=== PATIENT | male | born 1935 | race Caucasian/White ===

== ENCOUNTER 2016-11-16 00:20 | Emergency (ER) | payer MEDICARE, OTHER ==
[2016-11-16 01:14] LABS: Hematocrit 41.4 % (42.0-52.0); Hemoglobin 14.3 gm/dL (13.5-18.0); Mean Cell Volume 87.5 fl (78-100); Mean Corpuscular Hemoglobin 30.2 pg (27-31); Mean Corpuscular Hgb Conc 34.5 g/dl (32-36); Mean Platelet Volume 9.7 fl (6.0-9.5); Neutrophil # 9.9 K/mm3 (1.3-6.0); Neutrophil % 90.4 % (42-75.0); Platelet Count 264 K/mm3 (150-450); Red Blood Count 4.73 M/mm3 (4.7-6.0); Red Cell Distribution Width 13.2 % (11.5-14.0); White Blood Count 10.9 K/mm3 (4.0-10.5)
[2016-11-16 01:23] LABS: Anion Gap 13.9 mmol/L (6.8-13.8); BUN/Creatinine Ratio 15.6 (9.0-21.6); Calcium * 9.4 mg/dL (7.9-10.9); Carbon Dioxide 27.2 mmol/L (24-32.6); Estimated Creat Clear 55.4; Potassium 4.1 mmol/L (3.4-4.6)
--- NOTE | 2016-11-16 01:38 | ERNOTE ---
Abdominal HPI - Narrative Date of Service: 11/16/16 - General Chief Complaint: Constipation Time Seen by Provider: 11/16/16 00:31 Source: patient - Immun/Allergies/Home Medications Immunizatons: IMMUNIZATION HX Immunizations Up to Date Yes: "as far as I know" History of Influenza Vaccine More Information Required Hx Pneumococcal Vaccination Yes Allergies/Adverse Reactions: Allergies No Known Allergies Allergy (Verified 11/16/16 00:55) Home Medications: HOME MEDICATIONS Calcium Carbonate [Calcium] 500 mg PO DAILY 09/10/12 [Last Taken Unknown] Cholecalciferol (Vitamin D3) [Vitamin D3] 50,000 unit PO Q14D 09/10/12 [Last Taken 08/12/12 0900] Polyethylene Glycol 3350 [Miralax] 17 gm PO DAILY PRN 09/10/12 [Last Taken Unknown] Amlodipine Besylate 5 mg PO BID 11/16/16 [Last Taken Unknown] Ascorbic Acid [Vitamin C] 1,000 mg PO DAILY 11/16/16 [Last Taken Unknown] Cephalexin Monohydrate [Keflex] 500 mg PO TID #21 capsule 11/16/16 [Last Taken Unknown] Oxybutynin Chloride [Ditropan] 5 mg PO DAILY 11/16/16 [Last Taken Unknown] - History of Present Illness Narrative: 81-year-old who has been having constipation for the last 1 week, however he has been able to eat and drink without difficulty. Since this evening he has not been able to urinate which is actually the reason why he came to the emergency department tonight. Boyd denies any nausea, vomiting him a fever, chills back pain. Timing: constant Quality: mild Activities at Onset: none Modifying Factors - (Improves): Present: other - none Modifying Factors - (Worsens): Present: other - nothing Prior Abdominal Problems: Present: none Review of Systems - Review of Systems Constitutional: Present: no symptoms reported EYE: Present: no symptoms reported ENT: Present: no symptoms reported Respiratory: Present: no symptoms reported Cardiology: Present: no symptoms reported Gastrointestinal/Abdominal: Present: See HPI Genitourinary: Present: See HPI Musculoskeletal: Present: no symptoms reported Skin: Present: no symptoms reported Neurological: Present: no symptoms reported Endocrine: Present: no symptoms reported Hematologic/Lymphatic: Present: no symptoms reported Psych: Present: no symptoms reported - Patient's Past Medical History Patient History - Medical: Arthritis, Other Patient History - Cardiac/Respiratory: Hyperlipidemia Patient History - Cancer: No Hx of Cancer Patient History - Surgical Procedures: Colonoscopy, Pneumothorax, T & A, Other Patient History - Other: Jewish/Cultural Beliefs affecting care - Family History Father Family History - Medical: Family History - Cardiac/Respiratory: Hypertension Mother Family History - Medical: Brother Family History - Medical: - Social History Living Situations: other Abuse History: No History of abuse Psych History: No pertinent hx Smoking Status: Former smoker Have you smoked in the past 12 months: No Do you dip or chew tobacco: No Alcohol Use: none Drug Use: none - Immunizations Immunizations Up to Date: Yes - "as far as I know" Hx Pneumococcal Vaccination: Yes History of Influenza Vaccine: More Information Required to Determine Physical Exam - Physical Exam General Appearance: Present: no apparent distress Head Exam: Present: normal inspection Eye Exam: Normal inspection: bilateral Ears, Nose, Throat: Present: normal ENT inspection Neck: Present: normal inspection Respiratory: Present: no respiratory distress Cardiovascular/Chest: Present: regular rate, rhythm Gastrointestinal/Abdominal: Present: nontender, nondistended, no organomegaly Back Exam: Present: normal inspection Extremity Exam: Present: normal inspection Neurological Exam: Present: alert, oriented Skin Exam: Present: normal color ED Progress - Results and Orders Patient's Lab Results:: I have reviewed the patient's lab results. - Vital Signs Patient's Vital Signs:: I have reviewed the patient's vital signs. Vital Signs: Vital Signs 11/16/16 00:31 Temperature 37.2 C Pulse Rate 83 Respiratory 18 Rate Blood Pressure 154/81 O2 Sat by Pulse 95 Oximetry - X-Ray X-Ray #1 X-Ray: abdomen Interpretation: Interp. by me X-ray Comments: Large amount of stool present. Normal gas pattern. - Progress/Reassessment Chief Complaint: Constipation Progress:: Improved Progress Note-Subjective: 11/16/16 01:38 Greater than 300 cc were seen on bladder scanning. A parker catheter was placed. 11/16/16 02:09 Given one gram of Rocephin for a UTI. Departure - Departure Clinical Impression: UTI (urinary tract infection), Urinary outflow obstruction, Constipation Disposition: Home self-care Condition: Fair Instructions: Acute Urinary Retention, Male, Constipation, Adult, [id number] , Urinary Tract Infection, Adult, [id number] Print Language: Stateless Additional Instructions: Follow up with your doctor and the urologist. Referrals: Bhavin Tom MD [Primary Care Provider] - Hollis Felix MD [Associate] - Prescriptions: Cephalexin Monohydrate [Keflex] 500 mg PO TID #21 capsule
[2016-11-16 01:41] LABS: Urine Bilirubin Negative (NEGATIVE); Urine Blood 25 /ul (NEGATIVE); Urine Ketone Negative (NEGATIVE); Urine Protein Negative (NEGATIVE); Urine Specific Gravity 1.015 SP.GR. (1.005-1.030); Urine Urobilinogen Normal (NORMAL)
[2016-11-16 01:42] LABS: Urine Appearance Cloudy; Urine Bacteria 4+; Urine Color Pale Yellow; Urine Nitrite Positive (NEGATIVE); Urine WBC >50 /hpf (0-5)
[2016-11-16] MEDS ORDERED: MAGNESIUM HYDROXIDE 30 ML UDC PO ONE (02:13)
[2016-11-16] MEDS ORDERED: MAGNESIUM CITRATE 300 ML BTL PO ONE (02:13)
[2016-11-16] MEDS ORDERED: MAGNESIUM HYDROXIDE 30 ML UDC ONE (02:16)
[2016-11-16] MEDS ORDERED: MAGNESIUM CITRATE 300 ML BTL ONE (02:20)
[2016-11-16 02:41] VITALS: BP 149/76
== END 2016-11-16 02:37 | disposition home or self-care (01) ==
LOC: ER 00:20
PROC: 0T9B70Z Drainage of Bladder with Drainage Device, Via Natural or Artificial Opening (ICD-10-PCS; principal; 2016-11-16)
PROC: BT40ZZZ Ultrasonography of Bladder (ICD-10-PCS; 2016-11-16)
DX: N39.0 Urinary tract infection, site not specified (principal); N13.9 Obstructive and reflux uropathy, unspecified; K59.00 Constipation, unspecified; Z87.891 Personal history of nicotine dependence

== ENCOUNTER 2018-05-15 11:42 | Observation (INO) ==
[2018-05-15] MEDS ORDERED: NORMAL SALINE 1,000 ML IV ONE ×2 (11:53→13:07)
[2018-05-15] MEDS ORDERED: ACETAMINOPHEN 500 MG TABLET PO ONE (11:56)
--- NOTE | 2018-05-15 11:59 | ERNOTE ---
Medical Problem HPI - Narrative Date of Service: 05/15/18 - General Chief Complaint: General Assessment Time Seen by Provider: 05/15/18 11:42 Source: patient Exam Limitations: no limitations - Immun/Allergies/Home Medications Immunizations: IMMUNIZATION HX Immunizations Up to Date Yes History of Influenza Vaccine No Hx Pneumococcal Vaccination Yes Allergies/Adverse Reactions: Allergies No Known Allergies Allergy (Verified 05/14/18 13:23) Home Medications: HOME MEDICATIONS Calcium Carbonate [Calcium] 500 mg PO DAILY 09/10/12 [Last Taken Unknown] Cholecalciferol (Vitamin D3) [Vitamin D3] 50,000 unit PO Q14D 09/10/12 [Last Taken 08/12/12 0900] Ascorbic Acid [Vitamin C] 1,000 mg PO DAILY 11/16/16 [Last Taken Unknown] Oxybutynin Chloride [Ditropan] 5 mg PO DAILY 11/16/16 [Last Taken Unknown] ascorbic acid (vitamin C) 500 mg tablet 500 mg PO DAILY 11/04/17 [Last Taken Unknown] polyethylene glycol 3350 17 gram/dose oral powder 17 g PO DAILY PRN #850 g 11/17/17 [Last Taken Unknown] amlodipine 5 mg tablet 5 mg PO BID #60 tab 05/14/18 [Last Taken Unknown] levofloxacin 500 mg tablet 500 mg PO DAILY 10 Days #10 tab 05/14/18 [Last Taken Unknown] - History of Present History Narrative: This patient is an 82-year-old male who is here because he cannot control his arms and legs. He is concerned about a brain bleed. He has a history of subarachnoid hemorrhage. He said that his symptoms began about a week ago. He has felt short of breath. He denies cough. He has a runny nose but denies other cold symptoms. He denies chest pain. He denies palpitations. He fell about a week ago and has no significant injury. He denies abdominal pain, nausea, vomiting, and diarrhea. He says that he has trouble urinating. He was seen in the office yesterday. The CC and HPI are: SOB (shortness of breath): Details: having some SOB, not all the time. comes and goes. does not get flu shot. family members wondered to lockstitch front maker people about some home care- daughter and grandaughter not sure of homebound status. He had a chest x-ray that showed: No focal acute cardiopulmonary finding. He had labs that included: WBC 7.3, Hgb 12.0, HCT 37.1, PLT 434, neutrophil 78.2%, lymphocyte 12.8% Sodium 138, potassium 3.0, CO2 30.4, BUN 22, creatinine 0.9 He was started on Levaquin. Review of Systems - Review of Systems Constitutional: Present: weakness, malaise. Absent: fever EYE: Absent: eye discharge, vision changes ENT: Present: nasal drainage. Absent: ear pain, nose congestion, sore throat Respiratory: Present: shortness of breath. Absent: cough Cardiology: Absent: chest pain, palpitations, syncope Gastrointestinal/Abdominal: Absent: nausea, vomiting, diarrhea, abdominal pain Genitourinary: Present: other - He has trouble passing his urine and is noted to be on oxybutynin. Skin: Absent: rash Neurological: Present: weakness, tremors. Absent: headache, numbness Endocrine: Present: no symptoms reported Hematologic/Lymphatic: Present: no symptoms reported Psych: Present: no symptoms reported Medical History (Last Reviewed 05/15/18 @ 12:08 by Al Haley MD) Arthritis Onset Date: ~2000 Diastolic dysfunction Onset Date: ~09/10/12 Emphysema lung Onset Date: ~1999 Erectile dysfunction Onset Date: ~03/28/15 Finger fracture Onset Date: ~04/11/17 left long finger Frequent falls Onset Date: ~03/28/15 H/O wisdom tooth extraction Onset Date: ~1962 Hypertension Onset Date: ~1997 Hypertrophy of prostate without urinary obstruction Onset Date: ~10/30/10 Moderate concentric left ventricular hypertrophy Onset Date: ~09/10/12 Primary cerebellar degeneration Onset Date: ~10/30/10 Urinary tract bacterial infections Onset Date: Unknown Vitamin D deficiency Onset Date: Unknown Surgical History: Surgical History (Last Reviewed 05/15/18 @ 12:08 by Al Haley MD) H/O colonoscopy Onset Date: ~2006 H/O pneumonectomy Onset Date: ~1967 Hx of tonsillectomy Onset Date: ~1948 S/P TURP (status post transurethral resection of prostate) Onset Date: ~11/2014 Family History: Family History (Last Reviewed 05/15/18 @ 12:08 by Al Haley MD) Father , age 74 Cancer lung ca Hypertension Kidney stone Mother , age 59 pancreatic ca Cancer pancreatic ca Brother , age 55 Cancer unsure of type in his arm Hypertension Son Alive and well x 2 Daughter Alive and well x 2 Uncle , age 65 from [place] Myocardial infarction Social History: Preferred Language Montenegrin Do you have any quaker or Yes: jehovah witness cultural preference? Smoking Status Former smoker Have you smoked in the past 12 No months Do you dip or chew tobacco No Abuse History No History of abuse Psych History No pertinent hx Alcohol Use none Drug Use none (Last Reviewed 05/14/18 @ 13:24 by Claeb Acuña LPN) No Social History Section defined Physical Exam - Physical Exam General Appearance: Present: alert, no apparent distress, cachetic Head Exam: Present: normal inspection, no evidence of injury Eye Exam: Normal inspection: bilateral Ears, Nose, Throat: Present: normal ENT inspection, dry mucous membranes Neck: Present: normal inspection. Absent: lymphadenopathy (R), lymphadenopathy (L) Respiratory: Present: no respiratory distress, no accessory muscle use, chest nontender, other - The lungs were essentially clear. There are a few crackles at the right base. Cardiovascular/Chest: Present: no murmur, tachycardia Gastrointestinal/Abdominal: Present: normal bowel sounds, nondistended, soft, no organomegaly, tenderness - Mild and diffuse. Extremity Exam: Present: normal inspection, non-tender, normal range of motion, no edema, other - He has an abrasion on the back of the right shoulder. Neurological Exam: Present: alert, normal mood/affect, other - He appears to have ataxia. No lateralizing deficit. Skin Exam: Present: normal color, warm/dry Progress - Date and Time Seen: Date and Time: I spoke with the patient and family. They are interested in admission. I spoke with Dr. Barrera and he agrees to keep the patient for observation. His temperature came down but was still elevated at the time of admission. - Results and Orders Patient's Lab Results:: I have reviewed the patient's lab results. Results and Orders: Laboratory Tests 05/15/18 05/15/18 05/15/18 12:00 12:00 12:00 WBC 13.7 H D Hgb 12.5 L Hct 37.7 L Plt Count 388 Immature Gran % (Auto) 0.40 Neutrophils % 90.5 H Lymphocytes % 4.4 L Monocytes % 4.2 Eosinophils % 0.1 Basophils % 0.4 Plasma Sodium 143 H Potassium 4.1 D Chloride 102 Carbon Dioxide 31.4 Anion Gap 13.7 BUN 22 Creatinine 0.92 Est GFR (Non-Af Amer) 84 Random Glucose 100 Lactic Acid, Venous 1.2 Calcium 9.1 Total Bilirubin 0.5 AST 37 ALT 23 Alkaline Phosphatase 220 H Total Protein 7.0 Albumin 3.3 L Urine Color Urine Appearance Urine pH Ur Specific [place] Urine Protein Urine Glucose (UA) Urine Ketones Urine Blood Urine Nitrate Urine Bilirubin Urine Urobilinogen Ur Leukocyte Esterase Urine RBC Urine WBC Ur Epithelial Cells Urine Bacteria Urine Culture Comments 05/15/18 12:21 WBC Hgb Hct Plt Count Immature Gran % (Auto) Neutrophils % Lymphocytes % Monocytes % Eosinophils % Basophils % Plasma Sodium Potassium Chloride Carbon Dioxide Anion Gap BUN Creatinine Est GFR (Non-Af Amer) Random Glucose Lactic Acid, Venous Calcium Total Bilirubin AST ALT Alkaline Phosphatase Total Protein Albumin Urine Color Yellow Urine Appearance Clear Urine pH 6.5 Ur Specific [place] 1.025 Urine Protein Negative Urine Glucose (UA) Negative Urine Ketones Negative Urine Blood Negative Urine Nitrate Negative Urine Bilirubin Negative Urine Urobilinogen Normal Ur Leukocyte Esterase Negative Urine RBC None seen Urine WBC Trace Ur Epithelial Cells 0-5 Urine Bacteria None seen Urine Culture Comments No culture indicated - Vital Signs Patient's Vital Signs:: I have reviewed the patient's vital signs. Vital Signs: Vital Signs 05/15/18 11:45 Temperature 39.5 C H Pulse Rate 115 H Respiratory Rate 20 O2 Sat by Pulse Oximetry 89 L - X-Ray X-Ray #1 X-Ray: chest Interpretation: Reviewed by me X-ray Comments: HISTORY: fever Additional history from technologist: Diagnosed with pneumonia 2 days ago. Weaker. TECHNIQUE: Single portable AP view of the chest was obtained 1258 hours. A copy of the image with line enhancing algorithm also submitted. COMPARISONS: Patient has multiple prior chest imaging available, with the most recent chest x-ray from 05/14/2018, oldest exam from chest CT from 07/29/2006. FINDINGS: Chest Single View *: Hypoinflated lungs. No definite consolidation. Vertically oriented scarring of the left lung base near the costophrenic angle, stable. Pulmonary vasculature is normal. No pneumothorax or pleural fluid collections apparent. Cardiac size within normal limits. Vascular calcification overlying the tortuous aorta, stable. Trachea is in normal position given patient positioning. Osseous structures are grossly intact. IMPRESSION: 1. No acute cardiopulmonary findings. 2. Additional comments are as above. Electronically signed by Kallie Spence M.D.. - Progress/Reassessment Chief Complaint: General Assessment Departure Clinical Impression: Fever, Failure of outpatient treatment - Departure Disposition: Still a patient Condition: Stable
[2018-05-15 12:12] LABS: Hematocrit 37.7 % (42.0-52.0); Hemoglobin 12.5 gm/dL (13.5-18.0); Mean Cell Volume 90.6 fl (78-100); Mean Corpuscular Hgb Conc 33.2 g/dl (32-36); Mean Platelet Volume 9.2 fl (8-11.3); Neutrophil # 12.4 K/mm3 (1.3-6.0); Neutrophil % 90.5 % (42-75.0); Platelet Count 388 K/mm3 (150-450); Red Blood Count 4.16 M/mm3 (4.7-6.0); Red Cell Distribution Width 13.3 % (11.5-14.0); White Blood Count 13.7 K/mm3 (4.0-10.5)
[2018-05-15 12:17] LABS: BUN/Creatinine Ratio 23.9 (9.0-21.6); Potassium 4.1 mmol/L (3.4-4.6)
[2018-05-15 12:18] LABS: Albumin * 3.3 gm/dl (3.4-5.0); Anion Gap 13.7 mmol/L (6.8-13.8); Bilirubin, Total 0.5 mg/dL (0.0-1.1); Ca. Corrected For Albumin 9.3 mg/dL (8.4-10.2); Calcium * 9.1 mg/dL (7.9-10.9); Carbon Dioxide 31.4 mmol/L (24-32.6)
[2018-05-15 12:49] LABS: Urine Bilirubin Negative (NEGATIVE); Urine Blood Negative /ul (NEGATIVE); Urine Ketone Negative (NEGATIVE); Urine Nitrite Negative (NEGATIVE); Urine Protein Negative (NEGATIVE); Urine Specific Gravity 1.025 SP.GR. (1.005-1.030); Urine Urobilinogen Normal (NORMAL); Urine pH 6.5 pH (5.0-7.0)
[2018-05-15 13:03] LABS: Urine Appearance Clear (CLEAR); Urine Bacteria None Seen; Urine Color Yellow; Urine RBC None Seen /hpf (0-5); Urine WBC TRACE /hpf (0-5)
[2018-05-15] MEDS: LEVOFLOXACIN IN DEXTROSE 5 % 750 MG/150 ML BAG IV SCH (14:23)
[2018-05-15] MEDS ORDERED: IBUPROFEN 400 MG TABLET PO ONE (15:26)
[2018-05-15] MEDS ORDERED: amLODIPine BESYLATE 5 MG TABLET PO ONE (22:46)
[2018-05-15] MEDS ORDERED: NORMAL SALINE 1,000 ML IV PRN (22:46)
[2018-05-15] MEDS ORDERED: OXYBUTYNIN CHLORIDE 5 MG TABLET PO ONE (22:47)
[2018-05-16 07:11] LABS: Hematocrit 31.7 % (42.0-52.0); Hemoglobin 10.4 gm/dL (13.5-18.0); Mean Cell Volume 90.8 fl (78-100); Mean Corpuscular Hemoglobin 29.8 pg (27-31); Mean Corpuscular Hgb Conc 32.8 g/dl (32-36); Mean Platelet Volume 9.4 fl (8-11.3); Neutrophil # 10.3 K/mm3 (1.3-6.0); Neutrophil % 86.5 % (42-75.0); Platelet Count 299 K/mm3 (150-450); Red Blood Count 3.49 M/mm3 (4.7-6.0); Red Cell Distribution Width 13.4 % (11.5-14.0); White Blood Count 11.9 K/mm3 (4.0-10.5)
[2018-05-16 07:42] LABS: Albumin * 2.6 gm/dl (3.4-5.0); Anion Gap 12.2 mmol/L (6.8-13.8); BUN/Creatinine Ratio 17.7 (9.0-21.6); Bilirubin, Total 0.6 mg/dL (0.0-1.1); Ca. Corrected For Albumin 9.4 mg/dL (8.4-10.2); Calcium * 8.6 mg/dL (7.9-10.9); Carbon Dioxide 28.4 mmol/L (24-32.6); Potassium 3.6 mmol/L (3.4-4.6)
--- NOTE | 2018-05-16 09:08 | HP ---
Chief Complaint - Chief Complaint Date of Service: 05/15/18 Time of Service: 17:00 Chief Complaint: Weakness, fever History of Present Illness: Oliver is an 82 yo male with Primary Cerebellar Degeneration who over the last two weeks has had a significant decline in his baseline. She had reported shortness of breath and had presented to the [facility] ER for evaluation a few days ago and diagnosed with pneumonia. He was started on Levaquin but continued to be short of breath. Family brought him back to the ER today for further evaluation. Chest xray today shows no evidence of pneumonia. He was 89% oxygen on room air and placed on oxygen at 2lpm in the ER. He was found to have fever and WBC of 13k. He denies urinary symptoms and denies cough. He reports over the last two weeks his right arm has been having more weakness than usual. Medical History (Last Reviewed 05/15/18 @ 19:39 by Addis Harding RN) Arthritis Onset Date: ~2000 Diastolic dysfunction Onset Date: ~09/10/12 Emphysema lung Onset Date: ~1999 Erectile dysfunction Onset Date: ~03/28/15 Finger fracture Onset Date: ~04/11/17 left long finger Frequent falls Onset Date: ~03/28/15 H/O wisdom tooth extraction Onset Date: ~1962 Hypertension Onset Date: ~1997 Hypertrophy of prostate without urinary obstruction Onset Date: ~10/30/10 Moderate concentric left ventricular hypertrophy Onset Date: ~09/10/12 Primary cerebellar degeneration Onset Date: ~10/30/10 Urinary tract bacterial infections Onset Date: Unknown Vitamin D deficiency Onset Date: Unknown Surgical History: Surgical History (Last Reviewed 05/15/18 @ 19:39 by Addis Harding RN) H/O colonoscopy Onset Date: ~2006 H/O pneumonectomy Onset Date: ~1967 Hx of tonsillectomy Onset Date: ~1948 S/P TURP (status post transurethral resection of prostate) Onset Date: ~11/2014 Family History: Family History (Last Reviewed 05/15/18 @ 19:39 by Addis Harding RN) Father , age 74 Cancer lung ca Hypertension Kidney stone Mother , age 59 pancreatic ca Cancer pancreatic ca Brother , age 55 Cancer unsure of type in his arm Hypertension Son Alive and well x 2 Daughter Alive and well x 2 Uncle , age 65 from [place] Myocardial infarction Social History: Patient Lives/Resources daughter Utilized Occupation retired Preferred Language Salvadorean Do you have any judaism or Yes: Jehovah witness cultural preference? Smoking Status Former smoker Have you smoked in the past 12 No months Do you dip or chew tobacco No Abuse History No History of abuse Psych History No pertinent hx Alcohol Use none Drug Use none (Last Reviewed 05/14/18 @ 13:24 by Caleb Acuña LPN) No Social History Section defined Review Of Systems (GEN) - Review of Systems Generalized/Overall Review: Present: Weakness, Chills, Fever EENTM: Present: No Symptoms Reported Respiratory: Present: Shortness of Breath. Absent: Cough Cardiac: Absent: Chest Pain, Edema, Palpitations Abdominal: Absent: Nausea, Vomiting, Hematemesis, Abdominal Pain, Constipation, Diarrhea Genitourinary: Present: No Symptoms Reported Musculoskeletal: Present: No Symptoms Reported Neurological: Present: No Symptoms Reported Skin: Present: Other - Scratches, sores Immunizations: IMMUNIZATION HX Immunizations Up to Date Yes History of Influenza Vaccine No Hx Pneumococcal Vaccination Yes Allergies/Adverse Reactions: Allergies Allergy/AdvReac Type Severity Reaction Status Date / Time No Known Allergies Allergy Verified 05/14/18 13:23 Home Medications: HOME MEDICATIONS Calcium Carbonate [Calcium] 500 mg PO DAILY 09/10/12 [Last Taken Unknown] Cholecalciferol (Vitamin D3) [Vitamin D3] 50,000 unit PO Q14D 09/10/12 [Last Taken 08/12/12 0900] Ascorbic Acid [Vitamin C] 1,000 mg PO DAILY 11/16/16 [Last Taken Unknown] Oxybutynin Chloride [Ditropan] 5 mg PO BID 11/16/16 [Last Taken Unknown] ascorbic acid (vitamin C) 500 mg tablet 500 mg PO DAILY 11/04/17 [Last Taken Unknown] polyethylene glycol 3350 17 gram/dose oral powder 17 g PO DAILY PRN #850 g 11/17/17 [Last Taken Unknown] amlodipine 5 mg tablet 5 mg PO BID #60 tab 05/14/18 [Last Taken Unknown] levofloxacin 500 mg tablet 500 mg PO DAILY 10 Days #10 tab 05/14/18 [Last Taken Unknown] Exam - Exam Vital Signs: Vital Signs - Last Taken Temp 37.0 C 05/16/18 07:35 Pulse 75 05/16/18 08:56 Resp 18 05/16/18 08:56 BP 136/67 05/16/18 07:35 Pulse Ox 94 05/16/18 08:56 Constitutional: Present: Alert, Oriented x3, Cooperative, No distress ENT Exam: Present: hearing grossly normal Eye Exam: bilateral eye: normal inspection Respiratory: Present: lungs clear, normal breath sounds, no respiratory distress Cardiovascular/Chest: Present: regular rate, rhythm, no murmur Abdomen: Present: Normal bowel sounds, soft, nontender, nondistended Skin Exam: Present: other - Multiple crusted scratches/sores on bilateral lower legs and right inner thigh. No erythema or drainage Lymphatic: Present: no adenopathy Neurologic: Present: alert, normal mood/affect, other - garbled speech, clunky motor movement Eye contact: Present: cooperative, good eye contact Thoughts: Present: normal thought pattern, no apparent hallucination Diagnostic Studies: Abnormal Lab Results 05/15/18 05/15/18 05/16/18 Range/Units 12:00 12:00 06:45 WBC 13.7 H D 11.9 H (4.0-10.5) K/mm3 RBC 4.16 L 3.49 L (4.7-6.0) M/mm3 Hgb 12.5 L 10.4 L (13.5-18.0) gm/dL Hct 37.7 L 31.7 L (42.0-52.0) % Immature Gran # (Auto) 0.06 H (0.000-0.0310) K/mm3 Neutrophils % 90.5 H 86.5 H (42-75.0) % Lymphocytes % 4.4 L 7.2 L (20-51) % Neutrophils # 12.4 H 10.3 H (1.3-6.0) K/mm3 Lymphocytes # 0.60 L 0.86 L (1.5-3.5) k/mm3 Sodium 143 H (132-142) mmol/L Plasma Sodium 143 H (130-142) mmol/L BUN/Creatinine Ratio 23.9 H (9.0-21.6) Alkaline Phosphatase 220 H (50-170) U/L Total Protein (6.2-8.2) gm/dL Albumin 3.3 L (3.4-5.0) gm/dl 05/16/18 Range/Units 06:45 WBC (4.0-10.5) K/mm3 RBC (4.7-6.0) M/mm3 Hgb (13.5-18.0) gm/dL Hct (42.0-52.0) % Immature Gran # (Auto) (0.000-0.0310) K/mm3 Neutrophils % (42-75.0) % Lymphocytes % (20-51) % Neutrophils # (1.3-6.0) K/mm3 Lymphocytes # (1.5-3.5) k/mm3 Sodium (132-142) mmol/L Plasma Sodium (130-142) mmol/L BUN/Creatinine Ratio (9.0-21.6) Alkaline Phosphatase 175 H (50-170) U/L Total Protein 6.0 L (6.2-8.2) gm/dL Albumin 2.6 L (3.4-5.0) gm/dl Laboratory Results WBC 11.9 K/mm3 (4.0-10.5) H 05/16/18 06:45 RBC 3.49 M/mm3 (4.7-6.0) L 05/16/18 06:45 Hgb 10.4 gm/dL (13.5-18.0) L 05/16/18 06:45 Hct 31.7 % (42.0-52.0) L 05/16/18 06:45 MCV 90.8 fl (78-100) 05/16/18 06:45 MCH 29.8 pg (27-31) 05/16/18 06:45 MCHC 32.8 g/dl (32-36) 05/16/18 06:45 RDW 13.4 % (11.5-14.0) 05/16/18 06:45 Plt Count 299 K/mm3 (150-450) 05/16/18 06:45 MPV 9.4 fl (8-11.3) 05/16/18 06:45 Immature Gran % (Auto) 0.30 % (0.001-0.429) 05/16/18 06:45 Immature Gran # (Auto) 0.03 K/mm3 (0.000-0.0310) 05/16/18 06:45 Neutrophils % 86.5 % (42-75.0) H 05/16/18 06:45 Lymphocytes % 7.2 % (20-51) L 05/16/18 06:45 Monocytes % 5.3 % (0.0-9) 05/16/18 06:45 Eosinophils % 0.4 % (0.0-3.0) 05/16/18 06:45 Basophils % 0.3 % (0.0-1.0) 05/16/18 06:45 Nucleated RBC % 0.0 k/mm3 (0-1) 05/16/18 06:45 Neutrophils # 10.3 K/mm3 (1.3-6.0) H 05/16/18 06:45 Lymphocytes # 0.86 k/mm3 (1.5-3.5) L 05/16/18 06:45 Monocytes # 0.6 k/mm3 (0.0-1.0) 05/16/18 06:45 Eosinophils # 0.1 k/mm3 (0.0-0.7) 05/16/18 06:45 Absolute Basophils 0.0 k/mm3 (0.0-0.1) 05/16/18 06:45 Sodium 142 mmol/L (132-142) 05/16/18 06:45 Plasma Sodium 142 mmol/L (130-142) 05/16/18 06:45 Potassium 3.6 mmol/L (3.4-4.6) 05/16/18 06:45 Chloride 105 mmol/L (97-106) 05/16/18 06:45 Carbon Dioxide 28.4 mmol/L (24-32.6) 05/16/18 06:45 Anion Gap 12.2 mmol/L (6.8-13.8) 05/16/18 06:45 BUN 14 mg/dL (6-23) 05/16/18 06:45 Creatinine 0.79 mg/dL (0.4-1.4) 05/16/18 06:45 Est GFR (Non-Af Amer) 100 mL/min (60-130) 05/16/18 06:45 BUN/Creatinine Ratio 17.7 (9.0-21.6) 05/16/18 06:45 Random Glucose 89 mg/dL (70-110) 05/16/18 06:45 Lactic Acid, Venous 1.2 mmol/L (0.4-2.0) 05/15/18 12:00 Calcium 8.6 mg/dL (7.9-10.9) 05/16/18 06:45 Calcium Adj for Albumin 9.4 mg/dL (8.4-10.2) 05/16/18 06:45 Total Bilirubin 0.6 mg/dL (0.0-1.1) 05/16/18 06:45 AST 32 U/L (0-48) 05/16/18 06:45 ALT 19 U/L (19-67) 05/16/18 06:45 Alkaline Phosphatase 175 U/L (50-170) H 05/16/18 06:45 Total Protein 6.0 gm/dL (6.2-8.2) L 05/16/18 06:45 Albumin 2.6 gm/dl (3.4-5.0) L 05/16/18 06:45 Urine Color Yellow 05/15/18 12:21 Urine Appearance Clear (CLEAR) 05/15/18 12:21 Urine pH 6.5 pH (5.0-7.0) 05/15/18 12:21 Ur Specific [place] 1.025 SP.GR. (1.005-1.030) 05/15/18 12:21 Urine Protein Negative mg/dL (NEGATIVE) 05/15/18 12:21 Urine Glucose (UA) Negative mg/dL (NEGATIVE) 05/15/18 12:21 Urine Ketones Negative mg/dL (NEGATIVE) 05/15/18 12:21 Urine Blood Negative /ul (NEGATIVE) 05/15/18 12:21 Urine Nitrate Negative (NEGATIVE) 05/15/18 12:21 Urine Bilirubin Negative mg/dl (NEGATIVE) 05/15/18 12:21 Urine Urobilinogen Normal EU/dl (NORMAL) 05/15/18 12:21 Ur Leukocyte Esterase Negative /ul (NEGATIVE) 05/15/18 12:21 Urine RBC None seen /hpf (0-5) 05/15/18 12:21 Urine WBC Trace /hpf (0-5) 05/15/18 12:21 Ur Epithelial Cells 0-5 /hpf (0-5) 05/15/18 12:21 Urine Bacteria None seen (NONE) 05/15/18 12:21 Urine Culture Comments No culture indicated 05/15/18 12:21 Influenza Type A Ag Negative (NEGATIVE) 05/15/18 17:09 Influenza Type B Ag Negative (NEGATIVE) 05/15/18 17:09 Assessment/Plan - Narrative Narrative: Oliver is an 82 yo male with chronic primary cerebellar degeneration that appears to be acutely declining over the last two weeks. He is having more difficulty with strength, feeding, walking, and ADLs. He has followed with Dr. Keane of neurology and told there is no treatment and that it will progressively worsen over time. He was recently diagnosed with pneumonia based on clinical findings. Chest xray does not show pneumonia and lung exam is clear today. He did however have a hypoxic event in the ER and is on oxygen now. Will attempt to wean from oxygen. He is also having fever of unknown source. Skin exam shows no significant cellulitis, his urine is clear, and I am not convinced of pneumonia. It is possible that he could have fever from cerebellar dysfunction vs caused by atelectasis. Will monitor temperature and look for a source. He will be admitted to observation due to the fever of unknown source and acute respiratory failure. - Assessment/Plan (1) Acute respiratory failure with hypoxia Problem: Acute (2) Fever Problem: Acute (3) Pneumonia Problem: Acute Qualifiers: Pneumonia type: due to unspecified organism Laterality: left Lung location: lower lobe of lung Qualified Code(s): J18.1 - Lobar pneumonia, unspecified organism (4) Cerebellar degeneration Problem: Chronic
--- NOTE | 2018-05-16 10:05 | DS ---
(1) Primary cerebellar degeneration Problem: Chronic (2) Acute respiratory failure with hypoxia Problem: Resolved (3) Fever Problem: Resolved (4) Pneumonia Problem: Acute Qualifiers: Pneumonia type: due to unspecified organism Laterality: left Lung location: lower lobe of lung Qualified Code(s): J18.1 - Lobar pneumonia, unspecified organism (5) Cerebellar degeneration Problem: Chronic Description of Stay: Oliver is an 82 yo male was admitted to observation due to shortness of breath and hypoxia and progressive weakness. He has a known progressive neurological disorder of Primary Cerebellar Degeneration. It is expected to g radually worsen and decline. Over the last two weeks has has been having more difficulty getting around the home, feeding, and otherwise taking care of himself. He had been clinically diagnosed with pneumonia through the ER. On this evaluation I see no evidence of pneumonia but he has been treated with levaquin for the past few days. He did have hypoxia in the ER and was placed on oxygen, but we have been able to remove the oxygen and his sats remain >93%. A repeat chest xray does not show pneumonia. He has stopped having fever and WBC is improved. I will plan to have him complete his course of levaquin. He does not need oxygen. I believe this is related to his progressive decline from his neurological condition. I believe this will continue to decline and I expect that he will not live beyond 6 months. Therefore we have consulted outpatient hospice through [facility]. Family reports that they have borrowed a wheelchair and bedside commode and have moved a bed to the main floor. [facility] hospice will see him tomorrow and family is ok taking him home later today. Procedures Performed: none Results and Findings: Lab Pending Results 05/15/18 12:00: WBC 13.7 H D, RBC 4.16 L, Hgb 12.5 L, Hct 37.7 L, MCV 90.6, MCH 30.0, MCHC 33.2, RDW 13.3, Plt Count 388, MPV 9.2, Immature Gran % (Auto) 0.40, Immature Gran # (Auto) 0.06 H, Neutrophils % 90.5 H, Lymphocytes % 4.4 L, Monocytes % 4.2, Eosinophils % 0.1, Basophils % 0.4, Nucleated RBC % 0.0, Neutrophils # 12.4 H, Lymphocytes # 0.60 L, Monocytes # 0.6, Eosinophils # 0.0, Absolute Basophils 0.1 05/15/18 12:00: Sodium 143 H, Plasma Sodium 143 H, Potassium 4.1 D, Chloride 102, Carbon Dioxide 31.4, Anion Gap 13.7, BUN 22, Creatinine 0.92, Est GFR (Non- Af Amer) 84, BUN/Creatinine Ratio 23.9 H, Random Glucose 100, Calcium 9.1, Calcium Adj for Albumin 9.3, Total Bilirubin 0.5, AST 37, ALT 23, Alkaline Phosphatase 220 H, Total Protein 7.0, Albumin 3.3 L 05/15/18 12:00: Lactic Acid, Venous 1.2 05/15/18 12:21: Urine Color Yellow, Urine Appearance Clear, Urine pH 6.5, Ur Specific [place] 1.025, Urine Protein Negative, Urine Glucose (UA) Negative, Urine Ketones Negative, Urine Blood Negative, Urine Nitrate Negative, Urine Bilirubin Negative, Urine Urobilinogen Normal, Ur Leukocyte Esterase Negative, Urine RBC None seen, Urine WBC Trace, Ur Epithelial Cells 0-5, Urine Bacteria None seen, Urine Culture Comments No culture indicated 05/15/18 17:09: Influenza Type A Ag Negative, Influenza Type B Ag Negative 05/16/18 06:45: WBC 11.9 H, RBC 3.49 L, Hgb 10.4 L, Hct 31.7 L, MCV 90.8, MCH 29.8, MCHC 32.8, RDW 13.4, Plt Count 299, MPV 9.4, Immature Gran % (Auto) 0.30, Immature Gran # (Auto) 0.03, Neutrophils % 86.5 H, Lymphocytes % 7.2 L, Monocytes % 5.3, Eosinophils % 0.4, Basophils % 0.3, Nucleated RBC % 0.0, Neutrophils # 10.3 H, Lymphocytes # 0.86 L, Monocytes # 0.6, Eosinophils # 0.1, Absolute Basophils 0.0 05/16/18 06:45: Sodium 142, Plasma Sodium 142, Potassium 3.6, Chloride 105, Carbon Dioxide 28.4, Anion Gap 12.2, BUN 14, Creatinine 0.79, Est GFR (Non-Af Amer) 100, BUN/Creatinine Ratio 17.7, Random Glucose 89, Calcium 8.6, Calcium Adj for Albumin 9.4, Total Bilirubin 0.6, AST 32, ALT 19, Alkaline Phosphatase 175 H, Total Protein 6.0 L, Albumin 2.6 L Discharge Location: Home Disposition: Hospice Home Home Health Agency: [facility] Condition: Stable Discharge Activity: Activity as tolerated Discharge Diet: General/regular food Referrals: Bhavin Tom MD [Primary Care Provider] - Problem Oriented Discharge Instructions to Patient/Family: Hospice Additional Patient Instructions (free text): [facility]. Please call report and fax orders upon discharge. Prescriptions (Any new or edited meds): Lorazepam [Lorazepam Intensol] 1 mg PO Q2H PRN #60 oral.conc PRN Reason: anxiety/restlessness Complete Home Medications List: Complete Home Medication List: Oxybutynin Chloride [Ditropan] 5 mg PO BID 11/16/16 polyethylene glycol 3350 17 gram/dose oral powder 17 g PO DAILY PRN #850 g 11/17/17 amlodipine 5 mg tablet 5 mg PO BID #60 tab 05/14/18 levofloxacin 500 mg tablet 500 mg PO DAILY 10 Days #10 tab 05/14/18 Lorazepam [Lorazepam Intensol] 1 mg PO Q2H PRN #60 oral.conc 05/16/18
[2018-05-16] MEDS ORDERED: LORazepam 2 MG/ML DISP.SYRIN IV ONE (13:30)
[2018-05-16] MEDS ORDERED: LORazepam 0.5 MG TABLET PO ONE ×2 (13:31→14:30)
[2018-05-16] MEDS: LEVOFLOXACIN IN DEXTROSE 5 % 750 MG/150 ML BAG IV SCH (14:41)
[2018-05-16 17:49] VITALS: BP 155/83
== END 2018-05-16 16:04 | disposition hospice, home (50) ==
LOC: ER 11:42 → MS 11:42
PROVIDERS: ADMIT Family Medicine; ATTEND Family Medicine
CPT/HCPCS: 36415; 71010; 71020; 71045; 71046; 80053; 81001; 83605; 85025; 87040; 87400; 87449; 93005; 96365; 96366; 96367; 99214; 99285; G0378; G0463